=== PATIENT | female | born 1990 | race Caucasian/White ===

== ENCOUNTER → 2018-08-15 | Outpatient (CLI) | payer OTHER ==
[2018-08-15 12:56] LABS: HGB 12.5 gm/dL (11.4-16.0); MCH 34.8 pg (25.0-35.0); MCHC 34.6 g/dL (31.0-37.0); MCV 100.4 fL (80.0-100.0); Mean Platelet Volume 6.9; Platelet Count 253 k/uL (150-450); RBC 3.59 m/uL (3.80-5.40); RDW 12.8 % (11.5-15.5); WBC 10.1 k/uL (3.8-10.6)
[2018-08-15 13:03] LABS: Glucose 77 mg/dL (74-99)
[2018-08-15 13:21] LABS: T4, Free (Free Thyroxine) 1.01 ng/dL (0.78-2.19)
[2018-08-15 20:04] LABS: T3, Uptake 24 % (23-37)
[2018-08-15 20:25] LABS: HIV 1 AB Non-Reactive (Non-Reactive); HIV AB P24 Non-Reactive (Non-Reactive); HIV P24 AG Non-Reactive (Non-Reactive)
--- NOTE | 2018-08-15 22:08 | US ---
EXAMINATION TYPE: Transabdominal DATE OF EXAM: 08/15/2018 12:18 PM COMPARISON: NONE CLINICAL HISTORY: 28-year-old female Z36 confirm dates. EXAM PERFORMED: Transabdominal (TA) FINDINGS: EXAM MEASUREMENTS: GESTATIONAL AGE / DATING Physician Established: Not yet established Dates by LMP: (11 weeks/6 days) EDC: 02/28/19 Dates by First Scan: No previous this is first scan Dates by Current Scan for: ( 11 weeks/6 days) EDC: 02/28/19 MATERNAL ANATOMY Uterus: 11.7 x 7.2 x 8.1cm Right Ovary: 3.1 x 2.7 x 2.5cm Left Ovary: 2.6 x 1.9 x 1.6cm Post CDS / Adnexa: wnl Presence of free fluid: no GESTATION / SURVEY CRL: 5.1 (11 weeks/6 days) Yolk Sac (normal less than 6mm): not visualized Heart Rate: 167 bpm Rhythm: Normal IUP: Viable IUP Date of LMP: 05/24/18 Beta HcG (if available): Not available at this time IMPRESSION: 1. Single live intrauterine with estimated gestational age of 11 weeks 6 days by LMP. Curre nt ultrasound biometry is exactly concordant. 2. Complete survey recommended at 18-20 weeks.
== END | disposition home or self-care (01) ==
LOC: RADUSWWP 11:54
PROVIDERS: ATTEND Obstetrics & Gynecology
DX: Z36.9 Encounter for antenatal screening, unspecified (principal); Z34.81 Encounter for supervision of other normal pregnancy, first trimester; Z3A.11 11 weeks gestation of pregnancy
CPT/HCPCS: 36415; 76801; 82565; 82947; 84439; 84443; 84479; 85027; 86762; 86780; 86850; 86900; 86901; 87340; 87390

== ENCOUNTER → 2018-11-12 | Outpatient (CLI) | payer OTHER ==
[2018-11-12 10:43] LABS: HCT 34.1 % (34.0-46.0); HGB 11.4 gm/dL (11.4-16.0); MCH 33.6 pg (25.0-35.0); MCHC 33.6 g/dL (31.0-37.0); MCV 100.1 fL (80.0-100.0); Mean Platelet Volume 7.4; Platelet Count 222 k/uL (150-450); RBC 3.41 m/uL (3.80-5.40); WBC 11.2 k/uL (3.8-10.6)
== END ==
LOC: LABWHC1 09:06
PROVIDERS: ATTEND Obstetrics & Gynecology
DX: Z34.82 Encounter for supervision of other normal pregnancy, second trimester (principal); Z3A.00 Weeks of gestation of pregnancy not specified
CPT/HCPCS: 36415; 82950; 85027

== ENCOUNTER 2019-01-22 03:27 | Outpatient (CLI) | payer OTHER ==
[2019-01-22 04:11] VITALS: BP 125/68; PULSE 81; RESP 16; TEMP 98; BMI 33.7
[2019-01-22] MEDS ORDERED: AMPICILLIN 2,000 MG in SODIUM CHLORIDE 0.9% 100 ML IVPB STA (04:11)
[2019-01-22] MEDS ORDERED: BETAMET ACET-BETAMETH SOD PHOS 6 MG/ML VIAL IM SCH (04:15)
[2019-01-22] MEDS ORDERED: LACTATED RINGERS 1,000 ML IV SCH ×2 (04:15)
[2019-01-22 04:26] LABS: Basophils % (A) 0 %; Eosinophils # (A) 0.1 k/uL (0-0.7); Eosinophils % (A) 0 %; HCT 34.2 % (34.0-46.0); HGB 11.4 gm/dL (11.4-16.0); Lymphocytes # (A) 2.5 k/uL (1.0-4.8); Lymphocytes % (A) 22 %; MCH 33.6 pg (25.0-35.0); MCHC 33.5 g/dL (31.0-37.0); MCV 100.3 fL (80.0-100.0); Mean Platelet Volume 7.3; Monocytes # (A) 0.6 k/uL (0-1.0); Monocytes % (A) 5 %; Neutrophils # (A) 7.8 k/uL (1.3-7.7); Neutrophils % (A) 70 %; Platelet Count 255 k/uL (150-450); RBC 3.41 m/uL (3.80-5.40); RDW 13.2 % (11.5-15.5); WBC 11.1 k/uL (3.8-10.6)
[2019-01-22] MEDS ORDERED: MAGNESIUM SULFATE-D5W PMX 1 GM in DEXTROSE/WATER 1 100ML.BAG IVPB SCH (04:30)
[2019-01-22] MEDS ORDERED: MAGNESIUM SULFATE-WATER PMX 4 GM in WATER FOR INJECTION 1 100ML.BAG IVPB ONE (04:33)
--- NOTE | 2019-01-22 05:09 | P.TRANS ---
Providers Date of admission: 01/22/19 03:27 Expected date of discharge: 01/22/19 Attending physician: Anette Manuel Primary care physician: Stated None Hospital Course: Char is a 28-year-old at 34 and 5 weeks gestation who ryes following spontaneous rupture membranes approximately an hour ago. She relates that she was just laying in bed and woke up wet and continuing to leak. Amateur is positive. Her Precis course has been unremarkable otherwise she was feeling well up until this time. She is jean very irregularly every 7-10 minutes she was dilated to 1 cm and 90% effaced. Have already initiated steroid and an tibiotic therapy. We'll plan mag sulfate therapy to stabilize membranes in the brain as well as try and buy 24 hours to allow for her second dose of steroids. Risks of transfer reviewed with patient in detail and all questions were answered them, however Antoine Oconnor is unable to attend to babies less than 35 weeks and she would therefore be from her child and she would prefer to be with her child following delivery. We'll plan transfer to [facility] under the care of . A category 1 tracing is noted. On physical exam vital signs are stable and afebrile. Heart regular, lungs clear, extremities without pain. Abdomen soft nontender. Gravid uterus is noted. Assessment intrauterine at 34 weeks 5 days gestation: premature rupture membranes Plan transfer to high risk Center Patient Condition at Discharge: Stable Plan - Transfer Summary Transfer Medications: Active Medications Generic Name Dose Route Start Last Admin Trade Name Freq PRN Reason Stop Dose Admin Betamethasone Acet/Betameth SodPhos 12 mg 01/22/19 04:15 01/22/19 04:20 Celestone Soluspan IM 01/23/19 04:16 12 mg Q24H PERCY Administration Lactated Ringer's 1,000 mls @ 125 mls/hr 01/22/19 04:15 Lactated Ringers IV .Q8H PERCY Lactated Ringer's 1,000 mls @ 999 mls/hr 01/22/19 04:15 01/22/19 04:21 Lactated Ringers IV 999 mls/hr .Q1H1M PERCY Administration Ampicillin Sodium 2,000 mg/ 100 mls @ 200 mls/hr 01/22/19 04:11 01/22/19 04:21 Sodium Chloride IVPB 01/22/19 04:40 200 mls/hr ONCE STA Administration Magnesium Sulfate 4 gm/ IV 100 mls @ 300 mls/hr 01/22/19 04:33 Solution IVPB 01/22/19 04:52 ONCE ONE
[2019-01-22] MEDS ORDERED: MAGNESIUM SULFATE-WATER PMX 20 GM in WATER FOR INJECTION 1 500ML.BAG IV SCH (05:15)
== END 2019-01-22 05:49 ==
LOC: 4FBP 03:27 → FBPOP 03:27 → UNDOADMIN 03:27 → PREINTOOBSV 05:13 → EDSTATUS 05:19 → FBPOP 05:49
PROVIDERS: ATTEND Obstetrics & Gynecology
DX: O42.113 Preterm premature rupture of membranes, onset of labor more than 24 hours following rupture, third trimester (principal); Z3A.34 34 weeks gestation of pregnancy
CPT/HCPCS: 59025; 96361; 96365; 96367; 96372; 84112; 86900; 86901; 85025; 86850; G0463; J0702; J3475 ×2; J0290; 96366; 99215

== ENCOUNTER 2019-04-14 20:01 | Emergency (ER) | payer OTHER ==
[2019-04-14 21:02] LABS: HCT 45.1 % (34.0-46.0); HGB 14.9 gm/dL (11.4-16.0); MCHC 33.1 g/dL (31.0-37.0); MCV 99.8 fL (80.0-100.0); Mean Platelet Volume 7.4; Platelet Count 362 k/uL (150-450); RBC 4.52 m/uL (3.80-5.40); RDW 12.1 % (11.5-15.5); WBC 12.9 k/uL (3.8-10.6)
[2019-04-14] MEDS ORDERED: SODIUM CHLORIDE 0.9% 1,000 ML IV ONE ×2 (21:19→23:10)
[2019-04-14] MEDS ORDERED: HYDROmorphone 1 MG/ML 1 ML SYRINGE IVP STA (21:19)
[2019-04-14] MEDS ORDERED: PROMETHAZINE INJ 25 MG in SODIUM CHLORIDE 0.9% 50 ML IVPB STA (21:19)
--- NOTE | 2019-04-14 21:23 | ED ---
Abdominal Pain HPI - General Chief Complaint: Abdominal Pain Stated Complaint: NVD Time Seen by Provider: 04/14/19 21:04 Source: patient Mode of arrival: ambulatory Limitations: no limitations - History of Present Illness Initial Comments: Patient is 28-year-old woman presenting with complaint of nausea vomiting and upper abdominal pain. Patient states she started having some vomiting last night around midnight and had also had some upper abdominal pain. She states the pain has been intermittent. It is at times aching or sharp. The pain recurred tonight which let her to come back to the hospital. She has had a number of episodes of vomiting but has not seen any coffee-ground or blood. No change in bowel movements or urination. She did have a normal vaginal delivery 11 weeks ago. No menstrual cycle. MD Complaint: abdominal pain -: hour(s) Location: RUQ, epigastric Radiation: back Migration to: no migration Severity: severe Quality: aching, sharp Consistency: constant Improves With: nothing Worsens With: nothing Associated Symptoms: nausea, vomiting - Related Data Home Medications Medication Instructions Recorded Confirmed Levothyroxine Sodium [Levo-T] 50 mcg PO DAILY 01/22/19 04/14/19 Trinatal Rx 1 tab PO DAILY@1800 04/14/19 04/14/19 Previous Rx's Medication Instructions Recorded Famotidine [Pepcid] 20 mg PO BID #14 tablet 04/15/19 Ondansetron Odt [Zofran ODT] 4 mg PO Q8HR PRN #10 tab 04/15/19 Allergies Allergy/AdvReac Type Severity Reaction Status Date / Time No Known Allergies Allergy Verified 04/14/19 20:20 Review of Systems ROS Statement: Those systems with pertinent positive or pertinent negative responses have been documented in the HPI. ROS Other: All systems not noted in ROS Statement are negative. Constitutional: Denies: fever, chills Respiratory: Denies: cough, dyspnea Cardiovascular: Denies: chest pain, palpitations, edema Gastrointestinal: Reports: abdominal pain, nausea, vomiting. Denies: diarrhea, constipation, melena, hematochezia Genitourinary: Denies: dysuria, hematuria Musculoskeletal: Denies: back pain Skin: Denies: rash Neurological: Denies: headache, weakness, numbness Past Medical History Past Medical History: Thyroid Disorder History of Any Multi-Drug Resistant Organisms: None Reported Past Surgical History: No Surgical Hx Reported Past Anesthesia/Blood Transfusion Reactions: No Reported Reaction Past Psychological History: Anxiety Smoking Status: Never smoker Past Alcohol Use History: None Reported Past Drug Use History: None Reported - Past Family History Mother Family Medical History: No Reported History General Exam Limitations: no limitations General appearance: alert, in no apparent distress Head exam: Present: atraumatic, normocephalic Eye exam: Present: normal appearance. Absent: scleral icterus, conjunctival injection ENT exam: Present: normal oropharynx, mucous membranes dry Neck exam: Present: normal inspection, full ROM Respiratory exam: Present: normal lung sounds bilaterally. Absent: respiratory distress, wheezes, rales, rhonchi, stridor Cardiovascular Exam: Present: regular rate, normal rhythm, normal heart sounds. Absent: systolic murmur, diastolic murmur, rubs, gallop GI/Abdominal exam: Present: soft, tenderness (Right upper quadrant and epigastric), guarding. Absent: distended, rebound, rigid, mass, pulsatile mass, hernia Extremities exam: Present: normal inspection, normal capillary refill. Absent: pedal edema, calf tenderness Back exam: Present: normal inspection. Absent: CVA tenderness (R), CVA tenderness (L) Neurological exam: Present: alert Skin exam: Present: warm, dry, intact, normal color. Absent: rash Course Vital Signs 04/14/19 04/14/19 04/14/19 20:02 21:50 23:31 Temperature 98.4 F 98.6 F Pulse Rate 114 H 100 109 H Respiratory 24 17 17 Rate Blood Pressure 120/70 111/73 128/76 O2 Sat by Pulse 98 95 99 Oximetry 04/15/19 01:11 Temperature 98.8 F Pulse Rate 111 H Respiratory 17 Rate Blood Pressure 122/68 O2 Sat by Pulse 99 Oximetry Medical Decision Making - Medical Decision Making Patient is a 28-year-old woman here for vomiting and abdominal pain. Her workup does show dehydration with acidosis. Patient is given medication as well as IV hydration. Imaging studies are negative. The patient has had significant improvement since arrival here. On arrival she did appear that she would need admission at least for symptom control. She is now tolerating fluids and feels well and there is no tenderness on the exam. Discussed admission for further hydration and symptom management, but the patient would like to go home. She will maintain a low threshold to return here. We discussed appropriate further care and follow-up. - Lab Data Result diagrams: 04/14/19 20:16 04/14/19 21:50 Lab Results 04/14/19 04/14/19 04/14/19 Range/Units 20:16 21:07 21:07 WBC 12.9 H (3.8-10.6) k/uL RBC 4.52 (3.80-5.40) m/uL Hgb 14.9 (11.4-16.0) gm/dL Hct 45.1 (34.0-46.0) % MCV 99.8 (80.0-100.0) fL MCH 33.0 (25.0-35.0) pg MCHC 33.1 (31.0-37.0) g/dL RDW 12.1 (11.5-15.5) % Plt Count 362 (150-450) k/uL Neutrophils % (Manual) 21 % Band Neutrophils % 73 % Eosinophils % (Manual) 6 % Neutrophils # (Manual) 12.10 H (1.3-7.7) k/uL Eosinophils # (Manual) 0.77 H (0-0.7) k/uL Nucleated RBCs 0 (0-0) /100 WBC Manual Slide Review Performed Reactive Lymphocytes Present Sodium (137-145) mmol/L Potassium (3.5-5.1) mmol/L Chloride (98-107) mmol/L Carbon Dioxide (22-30) mmol/L Anion Gap mmol/L BUN (7-17) mg/dL Creatinine (0.52-1.04) mg/dL Est GFR (CKD-EPI)AfAm (>60 ml/min/1.73 sqM) Est GFR (CKD-EPI)NonAf (>60 ml/min/1.73 sqM) Glucose (74-99) mg/dL Calcium (8.4-10.2) mg/dL Total Bilirubin (0.2-1.3) mg/dL AST (14-36) U/L ALT (9-52) U/L Alkaline Phosphatase (38-126) U/L Total Protein (6.3-8.2) g/dL Albumin (3.5-5.0) g/dL Amylase (30-110) U/L Lipase (23-300) U/L Urine Color Light Yellow Urine Appearance Clear (Clear) Urine pH 5.5 (5.0-8.0) Ur Specific [place] 1.018 (1.001-1.035) Urine Protein 1+ H (Negative) Urine Glucose (UA) Negative (Negative) Urine Ketones 4+ H (Negative) Urine Blood Trace H (Negative) Urine Nitrite Negative (Negative) Urine Bilirubin Negative (Negative) Urine Urobilinogen <2.0 (<2.0) mg/dL Ur Leukocyte Esterase Negative (Negative) Urine RBC <1 (0-5) /hpf Urine WBC 1 (0-5) /hpf Ur Squamous Epith Cells 1 (0-4) /hpf Amorphous Sediment Rare H (None) /hpf Urine Bacteria Rare H (None) /hpf Hyaline Casts 18 H (0-2) /lpf Urine Mucus Rare H (None) /hpf Urine HCG, Qual Not Detected (Not Detectd) 04/14/19 Range/Units 21:50 WBC (3.8-10.6) k/uL RBC (3.80-5.40) m/uL Hgb (11.4-16.0) gm/dL Hct (34.0-46.0) % MCV (80.0-100.0) fL MCH (25.0-35.0) pg MCHC (31.0-37.0) g/dL RDW (11.5-15.5) % Plt Count (150-450) k/uL Neutrophils % (Manual) % Band Neutrophils % % Eosinophils % (Manual) % Neutrophils # (Manual) (1.3-7.7) k/uL Eosinophils # (Manual) (0-0.7) k/uL Nucleated RBCs (0-0) /100 WBC Manual Slide Review Reactive Lymphocytes Sodium 144 (137-145) mmol/L Potassium 4.7 (3.5-5.1) mmol/L Chloride 111 H (98-107) mmol/L Carbon Dioxide 6 L* (22-30) mmol/L Anion Gap 27 mmol/L BUN 9 (7-17) mg/dL Creatinine 0.90 (0.52-1.04) mg/dL Est GFR (CKD-EPI)AfAm >90 (>60 ml/min/1.73 sqM) Est GFR (CKD-EPI)NonAf 87 (>60 ml/min/1.73 sqM) Glucose 151 H (74-99) mg/dL Calcium 9.2 (8.4-10.2) mg/dL Total Bilirubin 0.5 (0.2-1.3) mg/dL AST 28 (14-36) U/L ALT 30 (9-52) U/L Alkaline Phosphatase 79 (38-126) U/L Total Protein 8.7 H (6.3-8.2) g/dL Albumin 5.5 H (3.5-5.0) g/dL Amylase 50 (30-110) U/L Lipase 31 (23-300) U/L Urine Color Urine Appearance (Clear) Urine pH (5.0-8.0) Ur Specific [place] (1.001-1.035) Urine Protein (Negative) Urine Glucose (UA) (Negative) Urine Ketones (Negative) Urine Blood (Negative) Urine Nitrite (Negative) Urine Bilirubin (Negative) Urine Urobilinogen (<2.0) mg/dL Ur Leukocyte Esterase (Negative) Urine RBC (0-5) /hpf Urine WBC (0-5) /hpf Ur Squamous Epith Cells (0-4) /hpf Amorphous Sediment (None) /hpf Urine Bacteria (None) /hpf Hyaline Casts (0-2) /lpf Urine Mucus (None) /hpf Urine HCG, Qual (Not Detectd) Disposition Clinical Impression: Abdominal pain, Vomiting Disposition: HOME SELF-CARE Condition: Fair Instructions (If sedation given, give patient instructions): Abdominal Pain (ED) Prescriptions: Famotidine [Pepcid] 20 mg PO BID #14 tablet Ondansetron Odt [Zofran ODT] 4 mg PO Q8HR PRN #10 tab PRN Reason: Nausea Is patient prescribed a controlled substance at d/c from ED?: No Referrals: Ousmane Simms MD [Primary Care Provider] - 1-2 days
[2019-04-14 21:47] LABS: Amorphous Sediment,Urine Rare /hpf; Appearance,Urine Clear (Clear); Bacteria,Urine Rare /hpf; Bilirubin,Urine Negative (Negative); Blood,Urine Trace (Negative); Color,Urine Light Yellow; Glucose,Urine (UA) Negative (Negative); Hyaline Casts,Urine 18 /lpf (0-2); Ketones,Urine 4+ (Negative); Leukocyte Esterase,Urine Negative (Negative); Mucus,Urine Rare /hpf; Nitrite,Urine Negative (Negative); PH, Urine 5.5 (5.0-8.0); Protein,Urine 1+ (Negative); RBC,Urine <1 /hpf (0-5); Specific Gravity,Urine 1.018 (1.001-1.035); Squamous Epithelial Cell,Urine 1 /hpf (0-4); Urobilinogen,Urine <2.0 mg/dL (<2.0); WBC,Urine 1 /hpf (0-5)
[2019-04-14 21:51] VITALS: RESP 17
[2019-04-14 22:04] LABS: Band Neutrophils % 73 %; Eosinophils # (M) 0.77 k/uL (0-0.7); Neutrophils % (M) 21 %; Nucleated Red Blood Cells 0 /100 WBC (0-0); Reactive Lymphocytes Present; Total Cells Counted 100
[2019-04-14 22:06] LABS: ALT 30 U/L (9-52); AST 28 U/L (14-36); African American GFR (CKD) >90 (>60 ml/min/1.73 sqM); Albumin 5.5 g/dL (3.5-5.0); Alkaline Phosphatase 79 U/L (38-126); Amylase 50 U/L (30-110); Blood Urea Nitrogen 9 mg/dL (7-17); Calcium 9.2 mg/dL (8.4-10.2); Chloride 111 mmol/L (98-107); Glucose 151 mg/dL (74-99); Potassium 4.7 mmol/L (3.5-5.1); Sodium 144 mmol/L (137-145); Total Bilirubin 0.5 mg/dL (0.2-1.3); Total Protein 8.7 g/dL (6.3-8.2)
[2019-04-14 22:11] LABS: Anion Gap 27 mmol/L
[2019-04-14 22:14] LABS: Carbon Dioxide 6 mmol/L (22-30)
--- NOTE | 2019-04-14 23:00 | CT ---
EXAMINATION TYPE: CT abdomen pelvis wo con DATE OF EXAM: 04/14/2019 COMPARISON: None HISTORY: Upper Abd. pain, nausea, vomiting. Pt is [address] DLP: 381.7 mGycm Automated exposure control for dose reduction was used. TECHNIQUE: Helical acquisition of images was performed from the lung bases through the pelvis. FINDINGS: Lung bases are clear. There is no pleural effusion. Heart size is normal. There is no pericardial eff usion. There is 1.5 cm hypodensity in the left lobe of the liver that is probably a cyst. Spleen is i ntact. Stomach appears normal. There is no pancreatic mass. The bile ducts are not dilated. Gallbladd er appears normal. There is no adrenal mass. Kidneys have normal size and contour. There is no hydronephrosis. Bladder d istends smoothly. There is no inguinal hernia. There is no free fluid in the pelvis. The lumbar verte bra have normal alignment. Posterior elements are intact. There is no compression fracture. Bony pelv is is intact. Uterus appears normal. There is no evidence of a pelvic mass. There is no ascites. There is no free air. There is no sign of a bowel obstruction. There is no mesen teric edema. Appendix appears normal. IMPRESSION: NEGATIVE CT SCAN OF THE ABDOMEN PELVIS. NORMAL APPENDIX. I DO NOT SEE A CAUSE FOR ABDOMINAL PAIN.
--- NOTE | 2019-04-15 | US ---
EXAMINATION TYPE: US abdomen limited DATE OF EXAM: 04/14/2019 COMPARISON: NONE CLINICAL HISTORY: RUQ pain, attention RUQ. abd [ain, nausea and vomiting EXAM MEASUREMENTS: Liver Length: 15.3 cm Gallbladder Wall: 0.2 cm CBD: 0.3 cm Right Kidney: 10.4 x 3.5 x 3.8 cm Pancreas: wnl Liver: 1.3cm medial left lobe cyst seen Gallbladder: wnl Evidence for sonographic Vasquez's sign: no CBD: wnl Right Kidney: wnl IMPRESSION: No gallstones or dilated ducts. Negative exam.
[2019-04-15 01:12] VITALS: BP 122/68; PULSE 111; TEMP 98.8
== END 2019-04-15 01:40 | disposition home or self-care (01) ==
LOC: EC 20:01
DX: R10.13 Epigastric pain (principal); R11.2 Nausea with vomiting, unspecified; E86.0 Dehydration; E87.2 Acidosis; E07.9 Disorder of thyroid, unspecified; Z79.890 Hormone replacement therapy
CPT/HCPCS: 99285; 96365; 96375; 96361 ×3; 36415; 80053; 82150; 83690; 85025; 81001; 81025; 76705; 74176; J2550; J1170

== ENCOUNTER 2020-06-09 09:29 | Emergency (ER) | payer OTHER ==
[2020-06-09] MEDS ORDERED: SODIUM CHLORIDE 0.9% 1,000 ML IV STA (09:41)
[2020-06-09] MEDS ORDERED: SODIUM CHLORIDE 0.9% 500 ML 500 ML IV STA (09:41)
[2020-06-09 09:46] VITALS: RESP 18
--- NOTE | 2020-06-09 09:50 | ED ---
Psych HPI - General Chief Complaint: Psychiatric Symptoms Stated Complaint: EPS eval Time Seen by Provider: 06/09/20 09:29 Source: patient, police, EMS, RN notes reviewed Mode of arrival: EMS - History of Present Illness Initial Comments: This is a 31-year-old female history of cutting herself when she was younger was brought in with complaints of feeling depressed and suicidal she does admit to ingesting approximately a quarter bottle of Benadryl and route 6:00 this morning she states she vomited up quite a bit of at around 15 minutes later. She does say she is currently living with her but they are she denies any other drugs or alcohol. MD Complaint: suicidal ideation, feels depressed, other - Related Data Home Medications Medication Instructions Recorded Confirmed No Known Home Medications 06/09/20 06/09/20 Allergies Allergy/AdvReac Type Severity Reaction Status Date / Time No Known Allergies Allergy Verified 06/09/20 10:54 Review of Systems ROS Statement: Those systems with pertinent positive or pertinent negative responses have been documented in the HPI. ROS Other: All systems not noted in ROS Statement are negative. Past Medical History Past Medical History: Thyroid Disorder History of Any Multi-Drug Resistant Organisms: None Reported Past Surgical History: No Surgical Hx Reported Past Anesthesia/Blood Transfusion Reactions: No Reported Reaction Past Psychological History: Anxiety Smoking Status: Current every day smoker Past Alcohol Use History: None Reported Past Drug Use History: Marijuana - Past Family History Mother Family Medical History: No Reported History General Exam - General Exam Comments Initial Comments: This is a well-developed well-nourished awake alert oriented 3 female Limitations: no limitations General appearance: alert, in no apparent distress Head exam: Present: atraumatic, normocephalic, normal inspection Eye exam: Present: normal appearance, PERRL, EOMI. Absent: scleral icterus, conjunctival injection, periorbital swelling ENT exam: Present: normal exam, mucous membranes moist Neck exam: Present: normal inspection, full ROM. Absent: tenderness, meningismus, lymphadenopathy Respiratory exam: Present: normal lung sounds bilaterally. Absent: respiratory distress, wheezes, rales, rhonchi, stridor Cardiovascular Exam: Present: normal rhythm, tachycardia, normal heart sounds. Absent: systolic murmur, diastolic murmur, rubs, gallop, clicks GI/Abdominal exam: Present: soft, normal bowel sounds. Absent: distended, tenderness, guarding, rebound, rigid Extremities exam: Present: normal inspection, full ROM, normal capillary refill. Absent: tenderness, pedal edema, joint swelling, calf tenderness Back exam: Present: normal inspection Neurological exam: Present: alert, oriented X3, CN II-XII intact Psychiatric exam: Present: depressed, flat affect, suicidal ideation Skin exam: Present: warm, dry, intact, normal color. Absent: rash Course Vital Signs 06/09/20 06/09/20 06/09/20 09:32 11:47 13:08 Temperature 97.6 F 98.1 F Pulse Rate 122 H 101 H 102 H Respiratory 18 18 18 Rate Blood Pressure 146/88 134/76 124/84 O2 Sat by Pulse 98 99 98 Oximetry Medical Decision Making - Medical Decision Making Patient was evaluated by the EPS service and will be admitted for inpatient treatment - Lab Data Result diagrams: 06/09/20 09:59 06/09/20 09:59 Lab Results 06/09/20 06/09/20 06/09/20 Range/Units 09:59 09:59 10:39 WBC 11.4 H (3.8-10.6) k/uL RBC 4.54 (3.80-5.40) m/uL Hgb 15.5 (11.4-16.0) gm/dL Hct 45.5 (34.0-46.0) % MCV 100.2 H (80.0-100.0) fL MCH 34.2 (25.0-35.0) pg MCHC 34.2 (31.0-37.0) g/dL RDW 12.0 (11.5-15.5) % Plt Count 332 (150-450) k/uL MPV 7.1 Neutrophils % 81 % Lymphocytes % 14 % Monocytes % 3 % Eosinophils % 1 % Basophils % 1 % Neutrophils # 9.2 H (1.3-7.7) k/uL Lymphocytes # 1.6 (1.0-4.8) k/uL Monocytes # 0.4 (0-1.0) k/uL Eosinophils # 0.1 (0-0.7) k/uL Basophils # 0.1 (0-0.2) k/uL Sodium 143 (137-145) mmol/L Potassium 3.3 L (3.5-5.1) mmol/L Chloride 108 H (98-107) mmol/L Carbon Dioxide 24 (22-30) mmol/L Anion Gap 11 mmol/L BUN 7 (7-17) mg/dL Creatinine 0.67 (0.52-1.04) mg/dL Est GFR (CKD-EPI)AfAm >90 (>60 ml/min/1.73 sqM) Est GFR (CKD-EPI)NonAf >90 (>60 ml/min/1.73 sqM) Glucose 118 H (74-99) mg/dL Calcium 10.0 (8.4-10.2) mg/dL Total Bilirubin 0.5 (0.2-1.3) mg/dL AST 22 (14-36) U/L ALT 16 (4-34) U/L Alkaline Phosphatase 60 (38-126) U/L Creatine Kinase 50 (30-135) U/L Total Protein 7.8 (6.3-8.2) g/dL Albumin 5.1 H (3.5-5.0) g/dL Urine HCG, Qual Not Detected (Not Detectd) Salicylates <1.0 mg/dL Urine Opiates Screen (NotDetected) Ur Oxycodone Screen (NotDetected) Urine Methadone Screen (NotDetected) Ur Propoxyphene Screen (NotDetected) Acetaminophen <10.0 ug/mL Ur Barbiturates Screen (NotDetected) U Tricyclic Antidepress (NotDetected) Ur Phencyclidine Scrn (NotDetected) Ur Amphetamines Screen (NotDetected) U Methamphetamines Scrn (NotDetected) U Benzodiazepines Scrn (NotDetected) Urine Cocaine Screen (NotDetected) U Marijuana (THC) Screen (NotDetected) 06/09/20 Range/Units 10:39 WBC (3.8-10.6) k/uL RBC (3.80-5.40) m/uL Hgb (11.4-16.0) gm/dL Hct (34.0-46.0) % MCV (80.0-100.0) fL MCH (25.0-35.0) pg MCHC (31.0-37.0) g/dL RDW (11.5-15.5) % Plt Count (150-450) k/uL MPV Neutrophils % % Lymphocytes % % Monocytes % % Eosinophils % % Basophils % % Neutrophils # (1.3-7.7) k/uL Lymphocytes # (1.0-4.8) k/uL Monocytes # (0-1.0) k/uL Eosinophils # (0-0.7) k/uL Basophils # (0-0.2) k/uL Sodium (137-145) mmol/L Potassium (3.5-5.1) mmol/L Chloride (98-107) mmol/L Carbon Dioxide (22-30) mmol/L Anion Gap mmol/L BUN (7-17) mg/dL Creatinine (0.52-1.04) mg/dL Est GFR (CKD-EPI)AfAm (>60 ml/min/1.73 sqM) Est GFR (CKD-EPI)NonAf (>60 ml/min/1.73 sqM) Glucose (74-99) mg/dL Calcium (8.4-10.2) mg/dL Total Bilirubin (0.2-1.3) mg/dL AST (14-36) U/L ALT (4-34) U/L Alkaline Phosphatase (38-126) U/L Creatine Kinase (30-135) U/L Total Protein (6.3-8.2) g/dL Albumin (3.5-5.0) g/dL Urine HCG, Qual (Not Detectd) Salicylates mg/dL Urine Opiates Screen Not Detected (NotDetected) Ur Oxycodone Screen Not Detected (NotDetected) Urine Methadone Screen Not Detected (NotDetected) Ur Propoxyphene Screen Not Detected (NotDetected) Acetaminophen ug/mL Ur Barbiturates Screen Not Detected (NotDetected) U Tricyclic Antidepress Not Detected (NotDetected) Ur Phencyclidine Scrn Not Detected (NotDetected) Ur Amphetamines Screen Not Detected (NotDetected) U Methamphetamines Scrn Not Detected (NotDetected) U Benzodiazepines Scrn Not Detected (NotDetected) Urine Cocaine Screen Not Detected (NotDetected) U Marijuana (THC) Screen Not Detected (NotDetected) Disposition Clinical Impression: Depression, Suicidal ideation, Overdose Disposition: TRANSFER TO PSYCH HOSP/UNIT Condition: Fair Referrals: None,Stated [Primary Care Provider] - 1-2 days
[2020-06-09 10:20] LABS: Basophils # (A) 0.1 k/uL (0-0.2); Basophils % (A) 1 %; Eosinophils # (A) 0.1 k/uL (0-0.7); Eosinophils % (A) 1 %; HCT 45.5 % (34.0-46.0); HGB 15.5 gm/dL (11.4-16.0); Lymphocytes # (A) 1.6 k/uL (1.0-4.8); Lymphocytes % (A) 14 %; MCH 34.2 pg (25.0-35.0); MCHC 34.2 g/dL (31.0-37.0); MCV 100.2 fL (80.0-100.0); Mean Platelet Volume 7.1; Monocytes # (A) 0.4 k/uL (0-1.0); Monocytes % (A) 3 %; Neutrophils # (A) 9.2 k/uL (1.3-7.7); Neutrophils % (A) 81 %; Platelet Count 332 k/uL (150-450); RBC 4.54 m/uL (3.80-5.40); WBC 11.4 k/uL (3.8-10.6)
[2020-06-09 10:30] LABS: ALT 16 U/L (4-34); AST 22 U/L (14-36); Acetaminophen <10.0 ug/mL; African American GFR (CKD) >90 (>60 ml/min/1.73 sqM); Albumin 5.1 g/dL (3.5-5.0); Alkaline Phosphatase 60 U/L (38-126); Anion Gap 11 mmol/L; Blood Urea Nitrogen 7 mg/dL (7-17); Carbon Dioxide 24 mmol/L (22-30); Chloride 108 mmol/L (98-107); Creatine Kinase 50 U/L (30-135); Glucose 118 mg/dL (74-99); Non-African American GFR(CKD) >90 (>60 ml/min/1.73 sqM); Potassium 3.3 mmol/L (3.5-5.1); Salicylate <1.0 mg/dL; Sodium 143 mmol/L (137-145); Total Bilirubin 0.5 mg/dL (0.2-1.3); Total Protein 7.8 g/dL (6.3-8.2)
[2020-06-09 11:06] LABS: Amphetamine Screen,Urine Not Detected (NotDetected); Barbiturate Screen,Urine Not Detected (NotDetected); Benzodiazepines Screen,Urine Not Detected (NotDetected); Cocaine Screen,Urine Not Detected (NotDetected); Methadone Screen, Urine Not Detected (NotDetected); Opiate Screen,Urine Not Detected (NotDetected); Oxycodone Screen, Urine Not Detected (NotDetected); Phencyclidine Screen,Urine Not Detected (NotDetected); Tricyclic Antidepressant,Urine Not Detected (NotDetected); Urn Cannabinoid Scrn Not Detected (NotDetected)
--- NOTE | 2020-06-09 15:04 | ED ---
Medical Decision Making - Medical Decision Making After period of time in emergency department patient denies any thoughts of harming herself at this time. She has been evaluated by the EPS service and will be discharged home with a safety plan. - Lab Data Result diagrams: 06/09/20 09:59 06/09/20 09:59 Lab Results 06/09/20 06/09/20 06/09/20 Range/Units 09:59 09:59 10:39 WBC 11.4 H (3.8-10.6) k/uL RBC 4.54 (3.80-5.40) m/uL Hgb 15.5 (11.4-16.0) gm/dL Hct 45.5 (34.0-46.0) % MCV 100.2 H (80.0-100.0) fL MCH 34.2 (25.0-35.0) pg MCHC 34.2 (31.0-37.0) g/dL RDW 12.0 (11.5-15.5) % Plt Count 332 (150-450) k/uL MPV 7.1 Neutrophils % 81 % Lymphocytes % 14 % Monocytes % 3 % Eosinophils % 1 % Basophils % 1 % Neutrophils # 9.2 H (1.3-7.7) k/uL Lymphocytes # 1.6 (1.0-4.8) k/uL Monocytes # 0.4 (0-1.0) k/uL Eosinophils # 0.1 (0-0.7) k/uL Basophils # 0.1 (0-0.2) k/uL Sodium 143 (137-145) mmol/L Potassium 3.3 L (3.5-5.1) mmol/L Chloride 108 H (98-107) mmol/L Carbon Dioxide 24 (22-30) mmol/L Anion Gap 11 mmol/L BUN 7 (7-17) mg/dL Creatinine 0.67 (0.52-1.04) mg/dL Est GFR (CKD-EPI)AfAm >90 (>60 ml/min/1.73 sqM) Est GFR (CKD-EPI)NonAf >90 (>60 ml/min/1.73 sqM) Glucose 118 H (74-99) mg/dL Calcium 10.0 (8.4-10.2) mg/dL Total Bilirubin 0.5 (0.2-1.3) mg/dL AST 22 (14-36) U/L ALT 16 (4-34) U/L Alkaline Phosphatase 60 (38-126) U/L Creatine Kinase 50 (30-135) U/L Total Protein 7.8 (6.3-8.2) g/dL Albumin 5.1 H (3.5-5.0) g/dL Urine HCG, Qual Not Detected (Not Detectd) Salicylates <1.0 mg/dL Urine Opiates Screen (NotDetected) Ur Oxycodone Screen (NotDetected) Urine Methadone Screen (NotDetected) Ur Propoxyphene Screen (NotDetected) Acetaminophen <10.0 ug/mL Ur Barbiturates Screen (NotDetected) U Tricyclic Antidepress (NotDetected) Ur Phencyclidine Scrn (NotDetected) Ur Amphetamines Screen (NotDetected) U Methamphetamines Scrn (NotDetected) U Benzodiazepines Scrn (NotDetected) Urine Cocaine Screen (NotDetected) U Marijuana (THC) Screen (NotDetected) Coronavirus (PCR) (Not Detectd) 06/09/20 06/09/20 Range/Units 10:39 13:16 WBC (3.8-10.6) k/uL RBC (3.80-5.40) m/uL Hgb (11.4-16.0) gm/dL Hct (34.0-46.0) % MCV (80.0-100.0) fL MCH (25.0-35.0) pg MCHC (31.0-37.0) g/dL RDW (11.5-15.5) % Plt Count (150-450) k/uL MPV Neutrophils % % Lymphocytes % % Monocytes % % Eosinophils % % Basophils % % Neutrophils # (1.3-7.7) k/uL Lymphocytes # (1.0-4.8) k/uL Monocytes # (0-1.0) k/uL Eosinophils # (0-0.7) k/uL Basophils # (0-0.2) k/uL Sodium (137-145) mmol/L Potassium (3.5-5.1) mmol/L Chloride (98-107) mmol/L Carbon Dioxide (22-30) mmol/L Anion Gap mmol/L BUN (7-17) mg/dL Creatinine (0.52-1.04) mg/dL Est GFR (CKD-EPI)AfAm (>60 ml/min/1.73 sqM) Est GFR (CKD-EPI)NonAf (>60 ml/min/1.73 sqM) Glucose (74-99) mg/dL Calcium (8.4-10.2) mg/dL Total Bilirubin (0.2-1.3) mg/dL AST (14-36) U/L ALT (4-34) U/L Alkaline Phosphatase (38-126) U/L Creatine Kinase (30-135) U/L Total Protein (6.3-8.2) g/dL Albumin (3.5-5.0) g/dL Urine HCG, Qual (Not Detectd) Salicylates mg/dL Urine Opiates Screen Not Detected (NotDetected) Ur Oxycodone Screen Not Detected (NotDetected) Urine Methadone Screen Not Detected (NotDetected) Ur Propoxyphene Screen Not Detected (NotDetected) Acetaminophen ug/mL Ur Barbiturates Screen Not Detected (NotDetected) U Tricyclic Antidepress Not Detected (NotDetected) Ur Phencyclidine Scrn Not Detected (NotDetected) Ur Amphetamines Screen Not Detected (NotDetected) U Methamphetamines Scrn Not Detected (NotDetected) U Benzodiazepines Scrn Not Detected (NotDetected) Urine Cocaine Screen Not Detected (NotDetected) U Marijuana (THC) Screen Not Detected (NotDetected) Coronavirus (PCR) Not Detected (Not Detectd) Disposition Clinical Impression: Depression, Overdose, Adjustment disorder Disposition: TRANSFER TO PSYCH HOSP/UNIT Condition: Fair Referrals: None,Stated [Primary Care Provider] - 1-2 days
[2020-06-09 15:36] VITALS: BP 133/96; PULSE 96; TEMP 98.2
== END 2020-06-09 15:33 ==
LOC: EC 09:29
DX: F32.9 Major depressive disorder, single episode, unspecified (principal); T45.0X2A Poisoning by antiallergic and antiemetic drugs, intentional self-harm, initial encounter; F43.20 Adjustment disorder, unspecified; F17.200 Nicotine dependence, unspecified, uncomplicated; Z20.828 Contact with and (suspected) exposure to other viral communicable diseases
CPT/HCPCS: 82075; 36415; 93005; 80053; 82550; 85025; 81025; 80306; 83520; 87635; 99285; 96360; 96361 ×4; G0480; 80329

== ENCOUNTER 2021-07-25 21:00 | Emergency (ER) | payer OTHER ==
[2021-07-25 21:09] VITALS: TEMP 98.5
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
[2021-07-25] MEDS ORDERED: ACETAMINOPHEN TAB 325 MG TAB PO STA (23:47)
--- NOTE | 2021-07-26 00:36 | CT ---
EXAMINATION TYPE: CT soft tissue neck wo con DATE OF EXAM: 07/26/2021 COMPARISON: None HISTORY: Neck pain CT DLP: 182 mGycm Automated exposure control for dose reduction was used. Images obtained from the level of the sternal notch to the top of the lateral ventricles without cont rast. There is no evidence of mediastinal adenopathy. There is normal appearance of the thyroid gland. Epig lottis is normal. There is no evidence of pharyngeal mass. Tonsils and adenoids appear normal. There is no evidence of cervical adenopathy. There is no soft tissue air. There is no evidence of pathologi c fluid collection. Submandibular salivary glands are normal. Parotid glands are normal. There is normal aeration of the paranasal sinuses. There is incomplete aeration of the mastoid sinuses. The skull base is intact. Florian tricles have normal size. There is no evidence of intracranial hemorrhage. IMPRESSION: Negative CT scan of the neck. No evidence of traumatic injury.
--- NOTE | 2021-07-26 00:37 | XR ---
EXAMINATION TYPE: XR chest 2V DATE OF EXAM: 07/26/2021 COMPARISON: NONE HISTORY: Pain TECHNIQUE: 2 views FINDINGS: Heart and mediastinum are normal. Lungs are clear. Diaphragm is normal. Thorax appears normal. IMPRESSION: Normal chest.
[2021-07-26 01:02] VITALS: RESP 16
[2021-07-26 06:15] VITALS: BP 125/70; PULSE 69
== END 2021-07-26 06:19 | disposition home or self-care (01) ==
LOC: EEVIPCON 21:00 → EC 21:00
DX: M54.2 Cervicalgia (principal); F17.200 Nicotine dependence, unspecified, uncomplicated; Z20.822 Contact with and (suspected) exposure to COVID-19
CPT/HCPCS: 70490; 71046; 81025; 87635; 93005; 99284

== ENCOUNTER 2021-11-25 12:38 | Emergency (ER) | payer OTHER ==
[2021-11-25 12:46] VITALS: BP 138/81; PULSE 108; RESP 20; TEMP 98.2
--- NOTE | 2021-11-25 13:30 | XR ---
Soft tissue neck HISTORY: Pain, difficulty breathing 2 views of the neck submitted, correlation to CT neck 07/26/2021 Epiglottis shows a normal appearance in profile. Cervical vertebral bodies show preserved height, ali gnment, and bone mineralization. Airway is patent. Metallic density projecting posterior to the thyro id cartilage thought likely to be related to the arytenoids which could be confirmed with CT. IMPRESSION: Findings as described posterior to the thyroid cartilage.
[2021-11-25] MEDS ORDERED: ORPHENADRINE 30 MG/ML 2 ML VIAL IM STA (15:11)
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
[2021-11-25] MEDS ORDERED: KETOROLAC 15 MG/ML 1 ML VIAL IM STA (16:30)
== END 2021-11-25 16:48 | disposition home or self-care (01) ==
LOC: EC 12:38
DX: M54.2 Cervicalgia (principal); F17.200 Nicotine dependence, unspecified, uncomplicated
CPT/HCPCS: 70360; 70490; 99284; 96372; J1885

== ENCOUNTER 2022-05-23 11:43 | Observation (INO) | payer OTHER ==
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
[2022-05-23 13:32] LABS: Basophils % (A) 0 %; Eosinophils % (A) 1 %; HCT 38.5 % (34.0-46.0); HGB 13.3 gm/dL (11.4-16.0); Lymphocytes # (A) 1.8 k/uL (1.0-4.8); Lymphocytes % (A) 36 %; MCH 32.8 pg (25.0-35.0); MCHC 34.4 g/dL (31.0-37.0); MCV 95.3 fL (80.0-100.0); Mean Platelet Volume 8.3; Monocytes # (A) 0.4 k/uL (0-1.0); Monocytes % (A) 7 %; Neutrophils # (A) 2.7 k/uL (1.3-7.7); Neutrophils % (A) 53 %; Platelet Count 275 k/uL (150-450); RBC 4.04 m/uL (3.80-5.40); RDW 12.2 % (11.5-15.5); WBC 5.1 k/uL (3.8-10.6)
[2022-05-23 13:37] LABS: Partial Thromboplastin Time 24.7 sec (22.0-30.0); Prothrombin Time 10.5 sec (9.0-12.0)
[2022-05-23 13:38] LABS: ALT 14 U/L (4-34); AST 19 U/L (14-36); African American GFR (CKD) >90 (>60 ml/min/1.73 sqM); Albumin 4.2 g/dL (3.5-5.0); Alkaline Phosphatase 50 U/L (38-126); Anion Gap 5 mmol/L; Blood Urea Nitrogen 8 mg/dL (7-17); Calcium 8.7 mg/dL (8.4-10.2); Carbon Dioxide 25 mmol/L (22-30); Chloride 109 mmol/L (98-107); Glucose 103 mg/dL (74-99); Non-African American GFR(CKD) >90 (>60 ml/min/1.73 sqM); Sodium 139 mmol/L (137-145); Total Bilirubin 0.3 mg/dL (0.2-1.3); Total Protein 6.4 g/dL (6.3-8.2)
[2022-05-23 13:54] LABS: HCG,Quantitative Serum <2.4 mIU/mL
--- NOTE | 2022-05-23 13:59 | CT ---
EXAMINATION TYPE: CT brain cspine wo con DATE OF EXAM: 05/23/2022 COMPARISON: None HISTORY: fall CT DLP: 1305.1 mGycm Automated exposure control for dose reduction was used. TECHNIQUE: CT scan of the head and cervical spine are performed without contrast. FINDINGS: There is no acute intracranial hemorrhage, mass effect, or midline shift identified. The ventricles and sulci are within normal limits in size. The globes are intact and the visualized sin uses are clear. Cervical spine is visualized in its entirety from C1 through upper thoracic levels and demonstrates s atisfactory alignment without evidence of acute fracture or dislocation. Prevertebral soft tissue ap pears within normal limits. The C1-C2 articulation is unremarkable. IMPRESSION: 1. There is no acute fracture or dislocation evident in the cervical spine. 2. No acute intracranial hemorrhage, mass effect, or midline shift is seen.
[2022-05-23] MEDS ORDERED: NALOXONE 0.4 MG/ML 1 ML VIAL IV PRN (14:24)
--- NOTE | 2022-05-23 14:37 | P.PN ---
Progress Note - Text Progress Note Date: 05/23/22 Spoke with ED about pt. She is having UE and LE sx that are difficult to assess. Per report had fall a week ago and since then has has progressive sx. Would recommend MRI brain C spine with neuro consult if being admitted. Will see pt after imaging.
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
[2022-05-23] MEDS ORDERED: ONDANSETRON 4 MG/2 ML VIAL IVP PRN (15:51)
[2022-05-23] MEDS ORDERED: ACETAMINOPHEN TAB 325 MG TAB PO PRN (15:51)
[2022-05-23] MEDS ORDERED: HYDROcodone/APAP 5-325MG 1 EACH TAB PO PRN (15:51)
[2022-05-23] MEDS ORDERED: NICOTINE GUM (POLACRILEX) 2 MG GUM BUCCAL PRN (15:51)
[2022-05-23] MEDS ORDERED: MELATONIN 3 MG TABLET PO PRN (15:51)
[2022-05-23] MEDS: ALPRAZolam 0.25 MG TAB PO PRN (16:22)
[2022-05-23] MEDS: KETOROLAC 15 MG/ML 1 ML VIAL IVP PRN (16:23)
[2022-05-23 16:47] LABS: T4, Free (Free Thyroxine) 0.82 ng/dL (0.78-2.19)
[2022-05-24] MEDS ORDERED: CYANOCOBALAMIN 1,000 MCG/ML 1 ML VIAL IM ONE (08:01)
[2022-05-24] MEDS ORDERED: LEVOTHYROXINE 100 MCG TAB PO SCH (08:15)
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
[2022-05-24] MEDS: ALPRAZolam 0.25 MG TAB PO PRN (10:34)
[2022-05-24 13:02] VITALS: BP 114/80; PULSE 82; RESP 12; TEMP 98.1
[2022-05-24] MEDS: KETOROLAC 15 MG/ML 1 ML VIAL IVP PRN (13:06)
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
== END 2022-05-24 16:35 | disposition home or self-care (01) ==
LOC: EC 11:43 → 6NMEDSUR 14:24
PROVIDERS: ADMIT Internal Medicine; ATTEND Internal Medicine
DX: S16.1XXA Strain of muscle, fascia and tendon at neck level, initial encounter (principal); W19.XXXA Unspecified fall, initial encounter; R53.1 Weakness; E53.8 Deficiency of other specified B group vitamins; E03.9 Hypothyroidism, unspecified; F41.9 Anxiety disorder, unspecified; G62.9 Polyneuropathy, unspecified; F17.200 Nicotine dependence, unspecified, uncomplicated; Z79.890 Hormone replacement therapy; Z79.899 Other long term (current) drug therapy
CPT/HCPCS: 96372; 96374; 96376; 99285; 36415; 84439; 82652; 80053; 84443; 82607; 82746; 85025; 85610; 85730; 84702; 72125; 70450; G0378 ×3; J3420; J1885 ×2